=== PATIENT | female | born 1985 | race Caucasian/White ===

== ENCOUNTER → 2019-09-15 12:37 | Outpatient (CLI) | payer OTHER, SELFPAY ==
--- NOTE | ~2019-09-15 | US_ITS ---
EXAMINATION: US OB transvaginal DATE: 09/15/2019 13:22 INDICATION: Threatened , first trimester TECHNIQUE: Real-time pelvic transabdominal and transvaginal ultrasound was performed. COMPARISON: None. FINDINGS: The uterus measures 11.2 x 7.6 x 7.9 cm. A 3.3 x 2.7 x 3.6 cm area of heterogeneous echogen icity is seen in the uterine fundus. There is an intrauterine gestational sac. A yolk sac is identifi ed. heart motion is identified measuring 162 beats per minute (bpm) by M-mode Doppler. The feta l crown rump length measures 2.6 cm , which correlates with an estimated gestational age of 9 weeks a nd 3 day(s) (+/-) 6 day(s). The right ovary measures 2.9 x 1.9 x 3.0 cm. The left ovary measures 2.9 x 1.5 x 2.7 cm. There is no free fluid in the pelvis. IMPRESSION: 1. Live intrauterine with an estimated gestational age of 9 weeks and 3 day(s) (+/-) 6 day( s) and an estimated delivery date of 04/16/2020. 2. Area of heterogeneous echogenicity near the uterine fundus which could reflect uterine fibroid how ever hematoma is a consideration. Sonographic follow-up is recommended. Reviewed, dictated and finalized at location A. Y RUNNER IMPRESSION: 1. Live intrauterine with an estimated gestational age of 9 weeks and 3 day(s) (+/-) 6 day(s) and an estimated delivery date of 04/16/2020. 2. Area of heterogeneous echogenicity near the uterine fundus which could refle ct uterine fibroid however hematoma is a consideration. Sonographic follow-up i s recommended.
== END ==
PROVIDERS: Visit Provider Obstetrics & Gynecology
DX: O20.0 Threatened abortion (principal); Z3A.00 Weeks of gestation of pregnancy not specified
CPT/HCPCS: 76817

== ENCOUNTER → 2019-10-08 07:52 | Outpatient (CLI) | payer OTHER, SELFPAY ==
--- NOTE | ~2019-10-08 | US_ITS ---
EXAMINATION: US OB limited EXAM DATE: 10/08/2019 08:36 INDICATION: Shortness miscarriage, vaginal spotting, cramping. Follow-up. First trimester. TECHNIQUE: Pelvic obstetrical transabdominal sonogram was performed by a technologist. There are mu ltiple grayscale and Doppler images available for interpretation. Comparison is made to prior examina tion from 09/15/2019. FINDINGS: Uterus measures 12.7 x 8.5 x 10.7 centimeters. Again there is posterior myometrial region w hich is homogeneous, soft tissue echogenicity measuring 4.5 x 4.7 x 5.2 cm, most likely a fibroid. Th is has increased in size compared to prior study from up to 3.3 x 2.7 x 3.6 cm. There is intrauterine gestation sac. pole with heart rate confirmed at 150 beats per minute. There is no sonograph ic evidence of subchorionic hemorrhage. IMPRESSION: Focal round posterior myometrial region, appearance most consistent with a fibroid unchan ged given round shape and soft tissue echogenicity, but with mild interval increase in size which cou ld be hormonal related change. Live intrauterine gestation. Reviewed, dictated and finalized at location A. [employer] IMPRESSION: Focal round posterior myometrial region, appearance most consistent with a fibroid unchanged given round shape and soft tissue echogenicity, but w ith mild interval increase in size which could be hormonal related change. Live intrauterine gestation.
== END ==
PROVIDERS: Visit Provider Obstetrics & Gynecology
DX: O20.0 Threatened abortion (principal); Z3A.00 Weeks of gestation of pregnancy not specified
CPT/HCPCS: 76815

== ENCOUNTER 2019-12-01 08:09 | Outpatient (CLI) | payer OTHER, SELFPAY ==
--- NOTE | ~2019-12-01 | US_ITS ---
EXAMINATION: US OB /maternal detail DATE: 12/01/2019 09:07 INDICATION: Routine care. anatomic survey. TECHNIQUE: Real-time ultrasound of the pelvis was performed. COMPARISON: Ultrasound 10/08/2019, 09/15/2019 FINDINGS: There is a single living fetus in transverse lie. The placenta is anterior, 2.7 cm from the cervix. heart rate is 142 beats per minute (bpm). The amniotic fluid volume is subjectively normal. A m ass in the posterior uterus may be a contraction or a fibroid. The following biometric data were obtained: Biparietal diameter (BPD): 4.6 cm; head circumference (HC): 17.8 cm; abdominal circumference (AC): 16 .4 cm; femur length (FL): 3.4 cm. These measurements are concordant. Estimated weight is 395 g +/- 59 g, which correlates with 79th percentile when 04/16/20 is used as estimated date of delivery. As single measurements, these parameters are each equal to the following estimated gestational ages w ith ranges of +/- 2 standard deviations: BPD: 20 weeks 0 days (18 weeks 2 days - 21 weeks 5 days). HC: 20 weeks 2 days (18 weeks 6 days - 21 weeks 5 days). AC: 21 weeks 3 days (19 weeks 3 days - 23 weeks 4 days). FL: 20 weeks 6 days (19 weeks 0 days - 22 weeks 4 days). estimated gestational age based solely on measurements from this exam is 20 weeks 5 days +/- 1 weeks 3 days. The cerebral ventricles, cerebellum, cisterna magna, nuchal fold, and visualized portions of the spin e are normal. The heart is normal. The diaphragm, stomach, kidneys, and bladder are normal. There are two umbilical arteries to yield a 3-vessel cord. The cord insertion is normal. IMPRESSION: 1. Single living fetus in transverse lie. 2. Estimated weight is 395 g +/- 59 g, which correlates with 79th percentile when 04/16/20 is u sed as estimated date of delivery. This date was set by ultrasound on 09/15/19. 3. Normal anatomic survey. Reviewed, dictated and finalized at location A. IMPRESSION: 1. Single living fetus in transverse lie. 2. Estimated weight is 395 g +/- 59 g, which correlates with 79th percen tile when 04/16/20 is used as estimated date of delivery. [facility]. 3. Normal anatomic survey.
== END 2019-12-01 08:10 | disposition home or self-care (01) ==
LOC: ANHIMG 08:13
PROVIDERS: Visit Provider Obstetrics & Gynecology
DX: Z34.81 Encounter for supervision of other normal pregnancy, first trimester (principal)
CPT/HCPCS: 76805

== ENCOUNTER 2020-03-18 17:16 | Observation (INO) | payer OTHER, SELFPAY ==
--- NOTE | ~2020-03-18 | MR_ITS ---
EXAMINATION: MR abdomen wo con DATE: 03/19/2020 07:39 INDICATION: Right abdominal pain. Third trimester of . TECHNIQUE: Magnetic resonance imaging (MRI) of the abdomen was performed without intravenous contrast . Sequences included sagittal T2-weighted FS FSE, coronal, sagittal, and axial FS FIESTA, axial and c oronal T2-weighted FSE, coronal LAVA-flex, axial STIR FSE, axial DWI, axial dual-echo T1-weighted FSP GR, and axial LAVA. COMPARISON: Ultrasound 03/18/2020 FINDINGS: There is a single intrauterine gestation in vertex presentation. The placenta is on the right. There are cysts in the maternal liver measuring up to 8 mm. The gallbladder is normal. There is a 7 mm cyst in the spleen. The pancreas, adrenal glands, and kidneys are normal. The maternal appendix is normal . There are no dilated loops of bowel. There are no pathologically enlarged lymph nodes. There is no free intraperitoneal fluid. IMPRESSION: 1. Normal maternal appendix. Reviewed, dictated and finalized at location A.
--- NOTE | ~2020-03-18 | US_ITS ---
US soft tissue pelvic DATE: 03/18/2020 18:15 INDICATION: Right lower quadrant abdominal pain TECHNIQUE: Real-time imaging of the right lower quadrant COMPARISON: None FINDINGS: Appendicitis is neither confirmed or excluded based upon this examination. IMPRESSION: No definitive finding Reviewed, dictated and finalized at Location A. Reviewed, dictated and finalized at location A. IMPRESSION: No definitive finding
--- NOTE | 2020-03-18 17:16 | OBADM ---
This patient, Graciela Rao, admitted to the OB room OB Post 116 for observation. Patient/family oriented to hospital policies and general routines including ID bracelet, bed and alarms, visiting hours, pain management, procedures, bathroom and other care routines, personal items, smoking policy, room service/diet, and visiting hours. Patient/Family are encouraged to report perceived risks to care and to ask questions if they do not understand what they are told or what they should do.
[2020-03-18 17:33] VITALS: BP 147/88; PULSE 92; TEMP 36.7
[2020-03-18 17:45] VITALS: BP 152/91; PULSE 92; RESP 20; TEMP 37.2
--- NOTE | 2020-03-18 17:50 | PC.NURSE ---
Dr. Roque at bedside discussing plan of care with patient
[2020-03-18 18:08] LABS: Basophils Percent Auto 0.2 % (0.2-1.2); Eosinophils Percent Auto 0.3 % (0-4.4); Hematocrit 36.6 % (37.0-47.0); Hemoglobin 12.4 g/dL (12.0-15.0); Immature Granulocyte Absolute 0.05 K/mm3 (0.00-0.031); Immature Granulocyte Percent A 0.4 % (0-0.5); Lymphocytes Absolute Auto 1.41 K/mm3 (0.9-3.2); Lymphocytes Percent Auto 11.7 % (18.3-44.2); Mean Corpuscular HGB Conc 33.9 g/dl (32-36); Mean Corpuscular Hemoglobin 30.2 pg (26-34); Mean Corpuscular Volume 89.1 fl (80-100); Mean Platelet Volume 9.7 fl (7.4-10.4); Monocytes Absolute Auto 0.8 K/mm3 (0.1-0.6); Monocytes Percent Auto 6.6 % (2.6-8.5); Neutrophils Absolute Auto 9.8 K/mm3 (1.3-6.7); Neutrophils Percent Auto 80.8 % (45.5-73.1); Platelet Count Result 183 k/mm3 (150-375); Red Blood Count 4.11 M/mm3 (4.2-5.4); Red Cell Distribution Width 14.6 % (11.5-14.5); White Blood Count 12.1 K/mm3 (4.5-10.0)
[2020-03-18 18:09] VITALS: BMI 36.6
[2020-03-18 18:10] LABS: Add Urine Microscopic? NO; Appearance Urine Clear (Clear); Bilirubin Urine Negative (Negative); Blood Urine Negative (Negative); Color Urine Colorless (Yellow); Glucose Urine UA Negative (Negative); Ketones Urine Negative (Negative); Leukocyte Esterase Ur Negative LEU/UL (NEGATIVE); Nitrate Urine Negative (Negative); Protein Urine Negative (Negative); Specific Grav Ur 1.008 (1.001-1.035); Urobilinogen Urine Negative mg/dL (<2.0)
--- NOTE | 2020-03-18 18:17 | PC.NURSE ---
Addendum entered by Peyton Gerber RN 03/18/20 18:23: below note was entered for [id number] Original Note: called Dr. Roque reported pt arrival and right lower quad pain with rebound tenderness. order received for CBC and Ultrasound.
[2020-03-18 18:25] VITALS: BP 124/70; PULSE 88
[2020-03-18 18:26] VITALS: RESP 20; TEMP 37.6
[2020-03-18] MEDS: MORPHINE SULFATE 2 MG/ML INJ IV PUSH (18:41)
[2020-03-18] MEDS: SODIUM CHLORIDE 0.9% IV 1,000 ML 100 ML IV CONT (18:42)
[2020-03-18 19:06] LABS: Lactic Acid 1.2 mmol/L (0.7-2.1)
[2020-03-18 19:07] LABS: Anion Gap 6 mmol/L (8-16); Blood Urea Nitrogen 5 mg/dL (7-17); Calcium 8.7 mg/dL (8.4-10.2); Carbon Dioxide 21 mmol/L (22-30); Chloride 108 mmol/L (98-107); Estimated CRCL calculation 192 ml/min; Estimated Glomerular Filt Rate > 60; Glucose 99 mg/dL (65-105); Potassium 3.9 mmol/L (3.4-5.0); Sodium 135 mmol/L (137-145)
[2020-03-18 19:45] VITALS: BP 110/60; PULSE 92
[2020-03-19 02:06] VITALS: BP 114/70; PULSE 97
[2020-03-19 05:46] LABS: Basophils Percent Auto 0.1 % (0.2-1.2); Eosinophils Percent Auto 0.2 % (0-4.4); Hematocrit 33.9 % (37.0-47.0); Hemoglobin 11.4 g/dL (12.0-15.0); Immature Granulocyte Absolute 0.06 K/mm3 (0.00-0.031); Immature Granulocyte Percent A 0.5 % (0-0.5); Lymphocytes Percent Auto 11.9 % (18.3-44.2); Mean Corpuscular HGB Conc 33.6 g/dl (32-36); Mean Corpuscular Hemoglobin 29.9 pg (26-34); Mean Platelet Volume 9.7 fl (7.4-10.4); Monocytes Absolute Auto 0.7 K/mm3 (0.1-0.6); Neutrophils Absolute Auto 8.9 K/mm3 (1.3-6.7); Neutrophils Percent Auto 81.3 % (45.5-73.1); Platelet Count Result 163 k/mm3 (150-375); Red Blood Count 3.81 M/mm3 (4.2-5.4); Red Cell Distribution Width 14.6 % (11.5-14.5)
[2020-03-19 05:55] LABS: Anion Gap 5 mmol/L (8-16); Blood Urea Nitrogen 3 mg/dL (7-17); Calcium 8.1 mg/dL (8.4-10.2); Carbon Dioxide 20 mmol/L (22-30); Chloride 107 mmol/L (98-107); Estimated CRCL calculation 192 ml/min; Estimated Glomerular Filt Rate > 60; Glucose 105 mg/dL (65-105); Potassium 3.9 mmol/L (3.4-5.0); Sodium 132 mmol/L (137-145)
[2020-03-19] MEDS: SODIUM CHLORIDE 0.9% IV 1,000 ML 100 ML IV CONT (06:29)
[2020-03-19 06:30] VITALS: TEMP 36.4
--- NOTE | 2020-03-19 06:40 | PC.NURSE ---
off floor for MRI
--- NOTE | 2020-03-19 07:07 | PC.NURSE ---
Dr. Hill at unit. report given. pt is at MRI. He will make round later.
--- NOTE | 2020-03-19 07:43 | PC.NURSE ---
Pt back from MRI.
[2020-03-19 07:45] VITALS: BP 126/78; PULSE 100
[2020-03-19 07:49] VITALS: RESP 20
[2020-03-19] MEDS: ACETAMINOPHEN 500 MG TABLET 1000 MG PO (08:36)
--- NOTE | 2020-03-19 08:49 | PM.CNGS ---
Assessment and Plan Assessment and plan (1) Abdominal pain: Onset Date: ~03/18/20 Code(s): R10.9 - Unspecified abdominal pain Status: Acute Assessment and Plan: Unknown etiolgy. Abdominal MR shows no inflammation of the appendix or surrounding it. (2) 36 weeks gestation of : Onset Date: ~08/2019 Code(s): Z3A.36 - 36 weeks gestation of Status: Acute Assessment and Plan: Seems to be normal by ultrasound and abdominal MR. As per primary service. Additional Plan Current situation discussed with Dr. Roque. She will take Tylenol for her abdominal pain and try starting a diet. I suggested for the next 2 days that she continue on a soft diet at the most. She may be able take Tylenol for this discomfort. I will sign off at this point. Please call if you have any questions or I can be of further assistance. History of Present Illness Consult details Consult date: 03/29/20 Reason for consult: abdominal pain (Right lower and mid abdomen) Requesting physician: Nigel Roque MD Narrative: patient is a pleasant 34-year-old white female who is 36 weeks . She states that she was feeling her normal self until about lunch time yesterday. Yesterday morning on Friday she woke up feeling well having gone golfing with her the day before. She did take 2 big swings while golfing but did not have any abdominal pain or muscle soreness that evening or the following morning when she woke up. She ate a normal breakfast on Friday she ate a fairly normal lunch. She then took a nap and when she woke up she had the right-sided abdominal pain. She put up with that until about 4:00 p.m. and then call Dr. muñoz for. He asked them to come to [facility] here [facility] and have a stress test and be monitored. He called me yesterday and we did an ultrasound which was equivocal for any sign of appendicitis. She did have nausea but her white count was normal last evening. I started her on antibiotics in case was appendicitis last night and ordered the more definitive test of a MR Without IV contrast for this morning. I have just reviewed the MR with Dr. Singleton in radiology. This showed that she does not have appendicitis. The uterine and 0 0 placenta looked normal. The colon is compressed along the right side of the uterus against the right abdominal wall but otherwise there is no signs of why she is having the pain. She does not have any hernias she does not have gallstones. This was all report to the patient and her who was with her. She is hungry today and would like to try something to eat. She is not nauseated right now. Review of Systems Constitutional: Constitutional: Reports no additional constitutional complaints, Reports fatigue and Denies malaise Eyes: Eyes: Denies change in vision and Denies loss of vision ENT: Reports Normal hearing present, Denies change in voice, Denies dizziness, Denies hoarseness and Denies sore throat Cardiovascular: Cardiovascular: Denies chest pain, Denies leg edema and Denies dyspnea Respiratory: Respiratory: Denies cough, Denies dyspnea and Denies wheezing Gastrointestinal: Gastrointestinal: Denies hematochezia, Denies change in bowel habits and Denies heartburn Genitourinary: Genitourinary: Reports no additional female genitourinary complaints, Reports as per HPI, Denies urinary frequency, Denies urinary incontinence and Denies urinary urgency Comments: Largely distended lower abdomen due to gravid uterus Thirty-six week . Musculoskeletal: Comments: Possibly musculoskeletal pain along the right abdominal wall to palpation but no other changes. There is no similar pain to palpation on the left. Neurologic: Reports Normal hearing present, Denies confusion, Denies dizziness, Denies loss of vision, Denies memory loss and Denies seizure-like activity Psychiatric: Psychiatric: Denies c
--- NOTE | 2020-03-19 09:52 | PM.IMHP ---
H&P: HPI History of Present Illness Date/Time: 03/19/20 09:52 Chief complaint: Right Side Pain Narrative: Graciela Rao is a 34 year old female 3 para 2021 female 36 weeks gestation presents acute onset right lower quadrant pain approximately 3-4 hours to admission. The day prior had had increased activity but no problems until she woke up with severe lower right lower quadrant right lateral quadrant pain. Also nauseous with no vomiting no constipation or diarrhea and no urinary tract symptoms. No vaginal bleeding and baby's movement has been normal. Review of Systems Review of Systems: All systems reviewed & are unremarkable except as noted in HPI and below Meds Home Medications and Allergies Home Medications Medication Instructions Recorded Confirmed Type no.144-folic acid 400 mcg PO DAILY 03/18/20 03/18/20 History [] Allergies Allergy/AdvReac Type Severity Reaction Status Date / Time No Known Allergies Allergy Unverified 11/28/17 14:35 Vital Signs Vital Signs - 24 hr 03/18/20 17:33 03/18/20 17:45 03/18/20 18:25 Temperature 36.7 C 37.2 C Pulse Rate 92 92 88 Respiratory Rate 20 Blood Pressure 147/88 H 152/91 H 124/70 03/18/20 18:26 03/18/20 19:45 03/19/20 02:06 Temperature 37.6 C H Pulse Rate 92 97 Respiratory Rate 20 Blood Pressure 110/60 114/70 03/19/20 06:30 03/19/20 07:45 03/19/20 07:49 Temperature 36.4 C L Pulse Rate 100 Respiratory Rate 20 Blood Pressure 126/78 Exam Const: General: uncomfortable Resp: Auscultation: clear to auscultation bilaterally Cardio: Rate: regular rate Rhythm: regular rhythm GI: GI Palp: Yes Soft to palpation, Yes Tenderness to palpation present (GI) and Yes Guarding due to palpation present (GI) Other: Fundus nontender H&P: Results Labs Labs: Short CBC 03/18/20 03/18/20 03/19/20 Range/Units 18:00 18:37 05:23 WBC 12.1 H Cancelled 11.0 H (4.5-10.0) K/mm3 Hgb 12.4 Cancelled 11.4 L (12.0-15.0) g/dL Hct 36.6 L Cancelled 33.9 L (37.0-47.0) % Plt Count 183 Cancelled 163 (150-375) k/mm3 BMP 03/18/20 03/19/20 18:37 05:23 Sodium 135 L 132 L Potassium 3.9 3.9 Chloride 108 H 107 Carbon Dioxide 21 L 20 L BUN 5 L 3 L Creatinine 0.40 L 0.40 L Glucose 99 105 Calcium 8.7 8.1 L Urine 03/18/20 Range/Units 18:00 Urine Color Colorless (Yellow) Urine Appearance Clear (Clear) Urine pH 8.0 (5.0-9.0) Ur Specific [place] 1.008 (1.001-1.035) Urine Protein Negative (Negative) mg/dL Urine Glucose (UA) Negative (Negative) mg/dL Assessment and Plan Additional Plan 1. Admit with blood work and ultrasound to evaluate for appendicitis. 2. Consult General surgery to assess for appendicitis. 3. Further plan based on findings of above.
--- NOTE | 2020-03-19 09:57 | PM.OBDSVD ---
DS: Admitting Diagnosis Admitting Diagnosis Admitting Diagnosis: Right Side Pain OB - DS: Summary OB Procedures : None OB Procedures Intrapartum: Other OB Procedures: : Other Time Spent with Patient Time attestation: Total time spent providing and/or coordinating discharge services: DS: Data Data Completed and Pending Labs on day of discharge: Labs from last 24 hours 03/19/20 03/19/20 03/18/20 05:23 05:23 18:37 WBC 11.0 H Cancelled RBC 3.81 L Cancelled Hgb 11.4 L Cancelled Hct 33.9 L Cancelled MCV 89.0 Cancelled MCH 29.9 Cancelled MCHC 33.6 Cancelled RDW 14.6 H Cancelled Plt Count 163 Cancelled MPV 9.7 Cancelled Immature Gran % (Auto) 0.5 Cancelled Neut % (Auto) 81.3 H Cancelled Lymph % (Auto) 11.9 L Cancelled [place] % (Auto) 6.0 Cancelled Eos % (Auto) 0.2 Cancelled Baso % (Auto) 0.1 L Cancelled Lymph # (Auto) 1.30 Cancelled [place] # (Auto) 0.7 H Cancelled Eos # (Auto) 0.0 Cancelled Baso # (Auto) 0.0 Cancelled Abs Immat Gran (auto) 0.06 H Cancelled Absolute Neuts (auto) 8.9 H Cancelled Absolute Nucleated RBC 0.0 Cancelled Nucleated RBC % 0.0 Cancelled % Immature Plt Fraction Cancelled Sodium 132 L Potassium 3.9 Chloride 107 Carbon Dioxide 20 L Anion Gap 5 L BUN 3 L Creatinine 0.40 L Estim Creat Clear Calc 192 Estimated GFR > 60 Glucose 105 Lactic Acid Calcium 8.1 L Urine Color Urine Appearance Urine pH Ur Specific [place] Urine Protein Urine Glucose (UA) Urine Ketones Ur Blood (Man) Urine Nitrate Urine Bilirubin Urine Urobilinogen Ur Leukocyte Esterase 03/18/20 03/18/20 03/18/20 18:37 18:37 18:00 WBC 12.1 H RBC 4.11 L Hgb 12.4 Hct 36.6 L MCV 89.1 MCH 30.2 MCHC 33.9 RDW 14.6 H Plt Count 183 MPV 9.7 Immature Gran % (Auto) 0.4 Neut % (Auto) 80.8 H Lymph % (Auto) 11.7 L [place] % (Auto) 6.6 Eos % (Auto) 0.3 Baso % (Auto) 0.2 Lymph # (Auto) 1.41 [place] # (Auto) 0.8 H Eos # (Auto) 0.0 Baso # (Auto) 0.0 Abs Immat Gran (auto) 0.05 H Absolute Neuts (auto) 9.8 H Absolute Nucleated RBC 0.0 Nucleated RBC % 0.0 % Immature Plt Fraction Sodium 135 L Potassium 3.9 Chloride 108 H Carbon Dioxide 21 L Anion Gap 6 L BUN 5 L Creatinine 0.40 L Estim Creat Clear Calc 192 Estimated GFR > 60 Glucose 99 Lactic Acid 1.2 Calcium 8.7 Urine Color Urine Appearance Urine pH Ur Specific [place] Urine Protein Urine Glucose (UA) Urine Ketones Ur Blood (Man) Urine Nitrate Urine Bilirubin Urine Urobilinogen Ur Leukocyte Esterase 03/18/20 18:00 WBC RBC Hgb Hct MCV MCH MCHC RDW Plt Count MPV Immature Gran % (Auto) Neut % (Auto) Lymph % (Auto) [place] % (Auto) Eos % (Auto) Baso % (Auto) Lymph # (Auto) [place] # (Auto) Eos # (Auto) Baso # (Auto) Abs Immat Gran (auto) Absolute Neuts (auto) Absolute Nucleated RBC Nucleated RBC % % Immature Plt Fraction Sodium Potassium Chloride Carbon Dioxide Anion Gap BUN Creatinine Estim Creat Clear Calc Estimated GFR Glucose Lactic Acid Calcium Urine Color Colorless Urine Appearance Clear Urine pH 8.0 Ur Specific [place] 1.008 Urine Protein Negative Urine Glucose (UA) Negative Urine Ketones Negative Ur Blood (Man) Negative Urine Nitrate Negative Urine Bilirubin Negative Urine Urobilinogen Negative Ur Leukocyte Esterase Negative Discharge Plan Discharge Consulting providers: Ramon Hill Discharging Clinician: Nigel Roque Patient Disposition: Home, Self-Care Activity: as tolerated Diet: as tolerated Discharge Instructions: 1. Keep appointment early this week as scheduled 2. If any significant symptomatic changes she is to return to the labor and delivery unit
[2020-03-19 10:01] VITALS: BP 119/74; PULSE 87
[2020-03-19 10:40] VITALS: BP 119/74; PULSE 87
== END 2020-03-19 11:10 | disposition home or self-care (01) ==
PROVIDERS: Surgery; Admitting Provider Obstetrics & Gynecology; Visit Provider Obstetrics & Gynecology
DX: O26.893 Other specified pregnancy related conditions, third trimester (principal); R10.9 Unspecified abdominal pain; Z3A.36 36 weeks gestation of pregnancy
CPT/HCPCS: 36415; 59025; 74181; 76857; 80048; 81003; 83605; 85025; 87086; 96361; 96365; 96366; 96368; 96375; A9270; G0378; G0379; J0131; J2270; J2543; J7030

== ENCOUNTER 2020-04-11 17:53 | Inpatient (IN) | payer OTHER, SELFPAY ==
[2020-04-11] VITALS (18 sets, daily range): BP systolic 115–143; BP diastolic 75–93; PULSE 73–94; BMI 38.3
--- NOTE | 2020-04-11 18:30 | LDADM ---
This patient, Graciela Rao, was admitted to Labor/Delivery/Recovery 108 on 04/11/20 at 17:53. Plans for labor, pain management and were discussed with patient. Patient/family oriented to hospital policies and general routines including ID bracelet, bed and alarms, visiting hours, pain management, procedures, bathroom and other care routines, personal items, smoking policy, room service/diet and guest tray routines, infant security routines, and visiting hours. Patient/Family are encouraged to report perceived risks to care and to ask questions if they do not understand what they are told or what they should do. See OBIX for further documentation.
[2020-04-11 19:02] LABS: Basophils Percent Auto 0.2 % (0.2-1.2); Eosinophils Absolute Auto 0.1 K/mm3 (0-0.3); Eosinophils Percent Auto 0.7 % (0-4.4); Hematocrit 35.2 % (37.0-47.0); Immature Granulocyte Absolute 0.03 K/mm3 (0.00-0.031); Immature Granulocyte Percent A 0.4 % (0-0.5); Lymphocytes Absolute Auto 2.09 K/mm3 (0.9-3.2); Lymphocytes Percent Auto 25.7 % (18.3-44.2); Mean Corpuscular HGB Conc 34.1 g/dl (32-36); Mean Corpuscular Hemoglobin 30.1 pg (26-34); Mean Corpuscular Volume 88.2 fl (80-100); Mean Platelet Volume 9.6 fl (7.4-10.4); Monocytes Absolute Auto 0.6 K/mm3 (0.1-0.6); Monocytes Percent Auto 7.1 % (2.6-8.5); Neutrophils Absolute Auto 5.4 K/mm3 (1.3-6.7); Neutrophils Percent Auto 65.9 % (45.5-73.1); Platelet Count Result 183 k/mm3 (150-375); Red Blood Count 3.99 M/mm3 (4.2-5.4); Red Cell Distribution Width 14.6 % (11.5-14.5); White Blood Count 8.1 K/mm3 (4.5-10.0)
[2020-04-11] MEDS: DINOPROSTONE 10 MG VAG INSERT VAGINAL (19:08)
[2020-04-12] VITALS (97 sets, daily range): BP systolic 85–163; BP diastolic 45–110; PULSE 66–168; RESP 16–18; TEMP 36.3–37.2; O2SAT 97–100
[2020-04-12] MEDS: OXYTOCIN 30 UNITS/NS 500 ML 30 UNITS/500 ML BAG IV CONT (06:17)
[2020-04-12] MEDS: LACTATED RINGERS 1,000 ML 125 ML IV CONT ×2 (06:17→07:48)
--- NOTE | 2020-04-12 06:17 | WPDANESEPPF ---
Anes - Initial Pre Proc Eval Procedure: Operation Date: 04/12/20 07:30 Proposed Procedures p Repeat Section, Bilateral Tubal Ligation With Cautery - Nigel Roque MD Date/Time: 04/12/20 06:17 Surgeon: Nigel Roque MD Pre Op Diagnosis: Induction of Labor Patient Data Age: 34 Gender: F Height: 1.65 m Weight: 104.5 kg Last Vital Signs Temp 36.3 C L 04/12/20 05:23 Pulse 89 04/12/20 06:16 BP 110/93 H 04/12/20 06:16 Allergies Allergy/AdvReac Type Severity Reaction Status Date / Time No Known Allergies Allergy Unverified 11/28/17 14:35 Home Medications Medication Instructions Recorded Confirmed Type 400 mcg PO DAILY 03/18/20 03/18/20 History acetaminophen 1,000 mg PO Q6H PRN #20 tablet 03/19/20 Rx Laboratory Tests 04/11/20 04/11/20 04/11/20 18:53 18:53 18:53 WBC 8.1 K/mm3 K/mm3 (4.5-10.0) RBC 3.99 M/mm3 L M/mm3 (4.2-5.4) Hgb 12.0 g/dL g/dL (12.0-15.0) Hct 35.2 % L % (37.0-47.0) MCV 88.2 fl fl (80-100) MCH 30.1 pg pg (26-34) MCHC 34.1 g/dl g/dl (32-36) RDW 14.6 % H % (11.5-14.5) Plt Count 183 k/mm3 k/mm3 (150-375) MPV 9.6 fl fl (7.4-10.4) Immature Gran % (Auto) 0.4 % % (0-0.5) Neut % (Auto) 65.9 % % (45.5-73.1) Lymph % (Auto) 25.7 % % (18.3-44.2) [place] % (Auto) 7.1 % % (2.6-8.5) Eos % (Auto) 0.7 % % (0-4.4) Baso % (Auto) 0.2 % % (0.2-1.2) Lymph # (Auto) 2.09 K/mm3 K/mm3 (0.9-3.2) [place] # (Auto) 0.6 K/mm3 K/mm3 (0.1-0.6) Eos # (Auto) 0.1 K/mm3 K/mm3 (0-0.3) Baso # (Auto) 0.0 K/mm3 K/mm3 (0.0-0.1) Abs Immat Gran (auto) 0.03 K/mm3 K/mm3 (0.00-0.031) Absolute Neuts (auto) 5.4 K/mm3 K/mm3 (1.3-6.7) Absolute Nucleated RBC 0.0 K/mm3 K/mm3 (0.0-0.012) Nucleated RBC % 0.0 % % (0.0-0.2) RPR Pending Blood Type O Positive Antibody Screen Negative Patient hx anesthesia problems: none Family hx anesthesia problems: none PMFSH Social History Social History Smoking status: Never smoker Second hand tobacco smoke exposure: No Substance use: never Gender identity (if verbalized by the patient): Female Sexual Orientation (if Verbalized by the Patient): Straight or Heterosexual Spiritual care concerns: No Anes - Eval Final PreProcedure Day of Procedure 04/12/20 06:17 Patient weight: obese Heart: regular rate and rhythm Lungs: clear to auscultation and normal air movement Airway: Mallampati scale class II Neurological: alert and oriented Last oral intake: >/= 8 hours ASA classification: III Anesthetic plan: proceed Anesthesia type and monitoring: regional spinal and standard monitoring Informed Consent: The patient's anesthetic plan and its attendant risks and benefits were discussed with the patient/family/POA. Questions were solicited and answers provided to the satisfaction of the patient/family/POA.
[2020-04-12 10:03] LABS: Rapid Plasma Reagin Non-Reactive (NonReactive)
--- NOTE | 2020-04-12 10:47 | WPDHPUPDATE1 ---
History and Physical Update Update Date/Time: 04/12/20 10:47 History and Physical has been reviewed, including an updated exam of the patient. There are NO changes in the patient's condition. Risks, benefits, and alternatives have been discussed and questions answered. Patient agrees to proceed with procedure.
--- NOTE | 2020-04-12 10:47 | WPDOBADMIT ---
Obstetrics - Admit Note Admission Note: record reviewed. No pertinent additions to the history and/or any subsequent changes in the physical findings that are not consistent with the expected course of the were found. Additions to the history and/or subsequent changes in the physical findings follow. None.
--- NOTE | 2020-04-12 10:48 | PM.OBPRVD ---
OB - Delivery Note Procedure Procedure: Procedures Operation Date: 04/12/20 07:30 <No data on this case meets the specified criteria> Route of delivery: Laceration description: Perineal - 2nd Degree Estimated blood loss (mL): 300 Anesthesia type: Epidural Disposition: floor Narrative: Patient prepped and draped in the usual manner for this procedure. Maternal expulsive efforts readily delivered vertex over intact perineum and the rest of baby was delivered without difficulty. Cord was clamped and cut and placenta delivered spontaneously. Cervix vagina and vulva were inspected second-degree midline laceration was noted. This is approximated using 2 0 chromic to approximate the vaginal tissue in a running interlocking manner the deep tissue close the space in the subcuticular layer on the perineum. At this point seizure was considered terminated with immediate postop condition mother and baby both excellent. Baby Weeks of gestation at delivery: 39 gender: Female Weight (pounds): 7 Weight (ounces): 13 score one minute: 9 score five minutes: 9
[2020-04-12] MEDS: OXYTOCIN 30 UNITS/NS 500 ML 30 UNITS/500 ML BAG 125 UNITS IV CONT (11:05)
[2020-04-12] MEDS: BENZOCAINE 20% AER SPR (*SP) 56 GM CAN 1 SPRAY TOPICAL (12:59)
[2020-04-12] MEDS: WITCH HAZEL 40 PADS 1 PAD TOPICAL (12:59)
[2020-04-12] MEDS: IBUPROFEN 600 MG TABLET PO (14:38)
[2020-04-12] MEDS: DIBUCAINE 1% OINTMENT 30 GM TUBE 1 APPLIC TOPICAL (14:39)
[2020-04-12] MEDS: ACETAMINOPHEN 325 MG TABLET 650 MG PO (21:07)
[2020-04-12] MEDS: DOCUSATE SODIUM 100 MG CAPSULE PO (21:07)
[2020-04-13 05:41] LABS: Hematocrit 35.1 % (37.0-47.0); Hemoglobin 11.7 g/dL (12.0-15.0)
--- NOTE | 2020-04-13 06:45 | PC.NURSE ---
PT introductions made and plan of care discussed per post , pain management, breast feeding, daily care activities. Pt verbalized understanding of such care.
[2020-04-13] MEDS: DOCUSATE SODIUM 100 MG CAPSULE PO (06:49)
[2020-04-13] MEDS: MULTIVIT/MIN/PREN/FOL AC/IRON TABLET 1 TAB PO (06:49)
[2020-04-13] MEDS: POLYSACCHARIDE IRON COMPLEX 150 MG CAPSULE PO (06:49)
[2020-04-13] MEDS: IBUPROFEN 600 MG TABLET PO ×2 (06:50→14:00)
[2020-04-13] MEDS: ACETAMINOPHEN 325 MG TABLET 650 MG PO ×2 (06:52→14:00)
[2020-04-13 07:40] VITALS: BP 125/76; PULSE 80; RESP 18; TEMP 36.2
[2020-04-13 07:45] VITALS: PULSE 80
--- NOTE | 2020-04-13 08:41 | PM.OBDSVD ---
DS: Admitting Diagnosis Admitting Diagnosis Admitting Diagnosis: Induction of Labor OB - DS: Summary OB Procedures : None OB Procedures Intrapartum: Spontaneous Vag Delivery OB Procedures: : None Peripartum Data Procedures: Procedures Operation Date: 04/12/20 07:30 <No data on this case meets the specified criteria> Time Spent with Patient Time attestation: Total time spent providing and/or coordinating discharge services: DS: Data Data Completed and Pending Labs on day of discharge: Labs from last 24 hours 04/13/20 04/11/20 05:02 18:53 Hgb 11.7 L Hct 35.1 L RPR Non-reactive Discharge Plan Discharge Discharging Clinician: Nigel Roque Patient Disposition: Home, Self-Care Activity: as tolerated Diet: as tolerated Patient Instructions: Antibiotic Form Stand Alone Forms: General Discharge Information Follow-up/Referrals: Nigel Roque MD [Physician] - 3 Weeks Discharge Medications: New ibuprofen 600 mg Tablet 600 mg PO Q6H PRN (Reason: Cramping) Qty: 30 RF: 0 Continued 400 mcg Tablet,Chewable 400 mcg PO DAILY RF: 0 Date of admission: 04/11/20 17:53 Primary Care Provider: PHYSICIAN,ARTIFICIAL LOG MACHINE OPERATOR Admitting Provider: Nigel Roque Attending physician on admission: Nigel Roque
--- NOTE | 2020-04-13 09:31 | WPDANLDPN2 ---
Anes-Prog Note L&D Date/Time: 04/13/20 09:31 Comfortable throughout: labor and delivery Neuraxial method: epidural Epidural/Spinal procedure site: clean & non-tender Neuro status: Neuro function grossly intact. Cardiovascular status: normal Respiratory status: normal Airway patency: baseline Mental status: baseline Post-Op hydration status: normal Vital Signs: Last Vital Signs Temp 36.5 C 04/12/20 21:00 Pulse 80 04/12/20 21:00 Resp 18 04/12/20 21:00 BP 128/90 04/12/20 21:00 Pulse Ox 99 04/12/20 21:00 Pain score (VAS): 0/10 I/O: Intake & Output 04/12/20 04/13/20 04/13/20 23:59 07:59 15:59 Intake Total 500 Balance 500 Post-procedural complaints: none Patient feedback: Patient satisfied with anesthetic care.
--- NOTE | 2020-04-13 13:10 | PC.NURSE ---
Consulted with patient, mother reports she is putting to breast each feeding using the nipple shield, she will then supplement and pump for 10-15 minutes. Parents report first child had issues with latch and mostly pumped and bottle fed. Mother is pleased infant is latching using a shield at times. Discussed nipple shield precautions and possible complications. Instructions given on application and cleaning of shield. Patient able to return demonstration on proper application of shield. Discussed the need to initiate pumping if infant continues to nurse with the shield. Patient verbalizes understanding. Reviewed feeding cues, frequencies, duration of feedings, feeding elimination flow sheet, and signs of adequate intake. Demonstrated stimulation techniques to wake infant for feeding. Assisted with infant to breast with shield. Reviewed positioning/alignment in cross cradle, holding breast in U hold and guided asymmetrical latch on. was able to latch correctly. nursed sleepily with short chew suckling, occasional swallowing noted. Reviewed signs of a correct latch, effective nursing and suck swallow ratio. Mother reports her plan is to continue to attempt each feeding with shield, allowing to feed/attempt for 10-15 minutes, then bottle feed as much as desires then pump. Mother will pump and bottle feed if infant does not effectively breastfeed within a few days. Mother is comfortable with pumping and bottle feeding as she did with first child. Mother is feeding as required and waking infant to feed if needed. Infant bottle feeding without issue and is currently meeting outcomes for weight, output, jaundice and feeding frequencies. Mother states she feels confident to continue current feeding plan at home. Reviewed transition to breast milk, signs of adequate intake, and engorgement/relief. Instructed to call ICP if intake/output less than required. Reviewed regular medications mother is taking. Information provided per Danielle. Reviewed community resources on the [facility] website and in the Mom/Baby guide. Information on outpatient services provided. Mother has no further questions at this time.
--- NOTE | 2020-04-13 14:15 | PC.NURSE ---
PT received discharge instructions per protocol and verbalized understanding of such instructions.
--- NOTE | 2020-04-13 14:57 | PC.NURSE ---
PT discharged to home ambulatory accompanied by spouse and to waiting car. Follow up appts confirmed
[2020-04-14 08:50] VITALS: BP 120/84; PULSE 92; RESP 16; TEMP 37.1; O2SAT 99
--- NOTE | 2020-04-15 08:05 | P.DS_ITS ---
DS: Admitting Diagnosis Admitting Diagnosis Admitting Diagnosis: Induction of Labor OB - DS: Summary OB Procedures : None OB Procedures Intrapartum: Spontaneous Vag Delivery OB Procedures: : None Peripartum Data Procedures: Procedures Operation Date: 04/12/20 07:30 <No data on this case meets the specified criteria> Time Spent with Patient Time attestation: Total time spent providing and/or coordinating discharge services: Discharge Plan Discharge Discharging Clinician: Nigel Roque Patient Disposition: Home, Self-Care Activity: as tolerated Diet: as tolerated Discharge Instructions: Education: Mom and Baby Guide Given to: Mother Follow-Up: Call your delivering provider's office for an appointment to be seen in: 3 weeks Mom and baby should come to the [facility] for the follow-up appointment. Appointment Date/Time: April 14, 2020 at 9:00 am What to expect at your follow-up visit: Blood Pressure Check Call [phone] if you are unable to keep your appointment time. BREAST CARE: * Wear a snug supportive bra. * For engorgement discomfort: Breast Feeding: * Apply warm moist washcloths * Express milk as needed to relieve engorgement * Wear loose clothing Bottle Feeding: * May apply ice packs * For sore nipples: * Identify correct latch-on * Apply warm moist washcloths before and after nursing * Air dry nipples after nursing * May apply Lansinoh cream to nipples PERINEAL CARE: * Until bleeding stops, use your lauren bottle after urinating * Change your pad frequently throughout the day * You may take sitz baths several times a day (fill your bathtub with warm water and soak for 20 minutes.) Do NOT bathe in the water * No tub baths until seen by your physician - You may shower ACTIVITY: * Rest as much as possible. * Do not exercise or lift anything heavier than your baby (such as laundry or other children.) * Avoid stairs or driving as much as possible. * Do not put anything into the vagina. No douching, tampons, or sexual activity until seen by physician. NOTIFY PHYSICIAN IF YOU HAVE ANY QUESTIONS OR IF ANY OF THE FOLLOWING SYMPTOMS OCCUR: * If your perineum becomes red, swollen, or more painful than what you have experienced in the hospital. * If your vaginal bleeding becomes foul smelling. * If your vaginal bleeding becomes more heavy than a period or if your bleeding changes from pink to bright red. However, you may pass an occasional walnut- sized clot once or twice for the first week . * If you experience a sharp, shooting pain in you calves. * If you discover a hard, reddened area on your breast or if you experience flu- like symptoms. * If you have a fever of 100.4 or greater DIET: * Eat regular, well-balanced meals. * Drink plenty of fluids daily. If , drink to thirst. Patient Instructions: Antibiotic Form Stand Alone Forms: General Discharge Information Follow-up/Referrals: Nigel Roque MD [Physician] - 3 Weeks Discharge Medications: New ibuprofen 600 mg Tablet 600 mg PO Q6H PRN (Reason: Cramping) Qty: 30 RF: 0 Continued 400 mcg Tablet,Chewable 400 mcg PO DAILY RF: 0 Date of admission: 04/11/20 17:53 Primary
--- NOTE | 2020-04-19 12:43 | PM.OBDSVD ---
DS: Admitting Diagnosis Admitting Diagnosis Admitting Diagnosis: Induction of Labor OB - DS: Summary OB Procedures : None OB Procedures Intrapartum: Spontaneous Vag Delivery OB Procedures: : None Peripartum Data Procedures: Procedures Operation Date: 04/12/20 07:30 <No data on this case meets the specified criteria> Time Spent with Patient Time attestation: Total time spent providing and/or coordinating discharge services: Discharge Plan Discharge Discharging Clinician: Nigel Roque Patient Disposition: Home, Self-Care Activity: as tolerated Diet: as tolerated Discharge Instructions: Education: Mom and Baby Guide Given to: Mother Follow-Up: Call your delivering provider's office for an appointment to be seen in: 3 weeks Mom and baby should come to the [facility] for the follow-up appointment. Appointment Date/Time: April 14, 2020 at 9:00 am What to expect at your follow-up visit: Blood Pressure Check Call [phone] if you are unable to keep your appointment time. BREAST CARE: * Wear a snug supportive bra. * For engorgement discomfort: Breast Feeding: * Apply warm moist washcloths * Express milk as needed to relieve engorgement * Wear loose clothing Bottle Feeding: * May apply ice packs * For sore nipples: * Identify correct latch-on * Apply warm moist washcloths before and after nursing * Air dry nipples after nursing * May apply Lansinoh cream to nipples PERINEAL CARE: * Until bleeding stops, use your lauren bottle after urinating * Change your pad frequently throughout the day * You may take sitz baths several times a day (fill your bathtub with warm water and soak for 20 minutes.) Do NOT bathe in the water * No tub baths until seen by your physician - You may shower ACTIVITY: * Rest as much as possible. * Do not exercise or lift anything heavier than your baby (such as laundry or other children.) * Avoid stairs or driving as much as possible. * Do not put anything into the vagina. No douching, tampons, or sexual activity until seen by physician. NOTIFY PHYSICIAN IF YOU HAVE ANY QUESTIONS OR IF ANY OF THE FOLLOWING SYMPTOMS OCCUR: * If your perineum becomes red, swollen, or more painful than what you have experienced in the hospital. * If your vaginal bleeding becomes foul smelling. * If your vaginal bleeding becomes more heavy than a period or if your bleeding changes from pink to bright red. However, you may pass an occasional walnut-sized clot once or twice for the first week . * If you experience a sharp, shooting pain in you calves. * If you discover a hard, reddened area on your breast or if you experience flu-like symptoms. * If you have a fever of 100.4 or greater DIET: * Eat regular, well-balanced meals. * Drink plenty of fluids daily. If , drink to thirst. Patient Instructions: Antibiotic Form Stand Alone Forms: General Discharge Information Follow-up/Referrals: Nigel Roque MD [Physician] - 3 Weeks Discharge Medications: New ibuprofen 600 mg Tablet 600 mg PO Q6H PRN (Reason: Cramping) Qty: 30 RF: 0 Continued 400 mcg Tablet,Chewable 400 mcg PO DAILY RF: 0 Date of admission: 04/11/20 17:53 Primary Care Provider: PHYSICIAN,HISTORIC SITE ADMINISTRATOR Admitting Provider: Nigel Roque Discharge Date/Time: 04/13/20 14:57 Attending physician on admission: Nigel Roque
--- NOTE | 2020-04-21 13:28 | PM.OBDSVD ---
DS: Admitting Diagnosis Admitting Diagnosis Admitting Diagnosis: Induction of Labor OB - DS: Summary OB Procedures : None OB Procedures Intrapartum: Spontaneous Vag Delivery OB Procedures: : None Peripartum Data Procedures: Procedures Operation Date: 04/12/20 07:30 <No data on this case meets the specified criteria> Time Spent with Patient Time attestation: Total time spent providing and/or coordinating discharge services: Discharge Plan Discharge Discharging Clinician: Nigel Roque Patient Disposition: Home, Self-Care Activity: as tolerated Diet: as tolerated Discharge Instructions: Education: Mom and Baby Guide Given to: Mother Follow-Up: Call your delivering provider's office for an appointment to be seen in: 3 weeks Mom and baby should come to the [facility] for the follow-up appointment. Appointment Date/Time: April 14, 2020 at 9:00 am What to expect at your follow-up visit: Blood Pressure Check Call [phone] if you are unable to keep your appointment time. BREAST CARE: * Wear a snug supportive bra. * For engorgement discomfort: Breast Feeding: * Apply warm moist washcloths * Express milk as needed to relieve engorgement * Wear loose clothing Bottle Feeding: * May apply ice packs * For sore nipples: * Identify correct latch-on * Apply warm moist washcloths before and after nursing * Air dry nipples after nursing * May apply Lansinoh cream to nipples PERINEAL CARE: * Until bleeding stops, use your lauren bottle after urinating * Change your pad frequently throughout the day * You may take sitz baths several times a day (fill your bathtub with warm water and soak for 20 minutes.) Do NOT bathe in the water * No tub baths until seen by your physician - You may shower ACTIVITY: * Rest as much as possible. * Do not exercise or lift anything heavier than your baby (such as laundry or other children.) * Avoid stairs or driving as much as possible. * Do not put anything into the vagina. No douching, tampons, or sexual activity until seen by physician. NOTIFY PHYSICIAN IF YOU HAVE ANY QUESTIONS OR IF ANY OF THE FOLLOWING SYMPTOMS OCCUR: * If your perineum becomes red, swollen, or more painful than what you have experienced in the hospital. * If your vaginal bleeding becomes foul smelling. * If your vaginal bleeding becomes more heavy than a period or if your bleeding changes from pink to bright red. However, you may pass an occasional walnut-sized clot once or twice for the first week . * If you experience a sharp, shooting pain in you calves. * If you discover a hard, reddened area on your breast or if you experience flu-like symptoms. * If you have a fever of 100.4 or greater DIET: * Eat regular, well-balanced meals. * Drink plenty of fluids daily. If , drink to thirst. Patient Instructions: Antibiotic Form Stand Alone Forms: General Discharge Information Follow-up/Referrals: Nigel Roque MD [Physician] - 3 Weeks Discharge Medications: New ibuprofen 600 mg Tablet 600 mg PO Q6H PRN (Reason: Cramping) Qty: 30 RF: 0 Continued 400 mcg Tablet,Chewable 400 mcg PO DAILY RF: 0 Date of admission: 04/11/20 17:53 Primary Care Provider: PHYSICIAN,DIETETICS DIRECTOR Admitting Provider: Nigel Roque Interventions: Discharge Disposition Last Done: 04/13/20 14:57 Discharge Date/Time: 04/13/20 14:57 Attending physician on admission: Nigel Roque Condition: Stable
== END 2020-04-13 14:57 | disposition home or self-care (01) | DRG 807 ==
LOC: ANHLDR 18:06 → ANHOB2 04-12 13:13
PROVIDERS: Admitting Provider Obstetrics & Gynecology; Visit Provider Obstetrics & Gynecology
DX: O34.211 Maternal care for low transverse scar from previous cesarean delivery (principal); Z37.0 Single live birth; Z3A.39 39 weeks gestation of pregnancy; O70.1 Second degree perineal laceration during delivery; O99.214 Obesity complicating childbirth; E66.9 Obesity, unspecified
CPT/HCPCS: 36415; 85014; 85018; 85025; 86592; 86850; 86900; 86901; A9270; J2590; J2795; J3010; J7120

== ENCOUNTER 2025-05-04 11:29 | Outpatient (CLI) | payer OTHER, SELFPAY ==
--- OUTSIDE RECORDS SUMMARY | 2025-05-04 12:10 | XMS_ITS | Clinical Summary ---
Author Organization [facility] Address On license of [facility] [place] [address] Care Team Providers Care Calender Roll Operator Name Role Phone Graciela Rawls PA-C Primary Care Provider [phone] Encounters Date Type Department Care Team Description 04/25/2025 Telephone [facility] [address] [place] [address] America Watson NP Orders (Heart Monitor ) from Last 3 Months Social History Tobacco Use Types Packs/Day Years Used Date Smoking Tobacco: Never Assessed Comments Unknown Sex and Gender Information Value Date Recorded Sex Assigned at Female 10/08/2024 1:27 PM HOSTLER HELPER Legal Sex Female 6:10 PM CDT Gender Identity Not on file Sexual Orientation Not on file Last Filed Vital Signs Vital Sign Reading Time Taken Comments Blood Pressure 120/79 08/03/2007 11:15 AM HOSTLER HELPER Pulse 78 08/03/2007 11:15 AM HOSTLER HELPER Temperature - - Respiratory Rate - - Oxygen Saturation - - Inhaled Oxygen Concentration - - Weight 65.3 kg (144 lb) 08/03/2007 11:15 AM HOSTLER HELPER Height 167.6 cm (5' 6) 08/03/2007 11:15 AM HOSTLER HELPER Body Mass Index 23.24 08/03/2007 11:15 AM HOSTLER HELPER Plan of Treatment Health Maintenance Due Date Last Done Comments Cervical Cancer Screening Pap Smear (Age 30 to 64) Every 3 Years 1987 Annual Physical 1990 Hepatitis C 2005 HPV Vaccines (1 - 3-dose SCDM series) 2014 Cervical Cancer Screening Pap with HPV Testing (Age 30 to 64) Every 5 Years 2017 Cervical Cancer Screening with HPV 2017 COVID-19 Vaccine ( season) 2025 05/14/2022, 07/05/2021, 11/27/2020, Additional history exists DTaP, Tdap and Td Vaccines (7 - Td or Tdap) 01/12/2030 01/13/2020, 03/04/2002, 03/22/1993, Additional history exists Hepatitis B Vaccines Completed 12/08/1997, 07/25/1997, 06/24/1997 Meningococcal B Vaccine Aged Out No l onger eligible based on patient's age to complete this topic Meningococcal Vaccine Aged Out No luis felipe marbin eligible based on patient's age to complete this topic Pneumococcal Vaccine: Pediatrics (0 to 5 Years) and At-Risk Patients (6 to 49 Years) Aged Out No longer eligible based on patient's age to complete this topic RSV Immunizations Under 20 Months Aged Out No longer eligible based on patient's age to complete this topic Insurance [employer] Care Teams Calender Roll Operator Relationship Specialty Start Date End Date Graciela Rawls PA-C [address] [place] [address] PCP - General PHYSICIAN CIRCULATION SALES REPRESENTATIVE 07/25/22
--- OUTSIDE RECORDS SUMMARY | 2025-05-04 12:10 | XMS_ITS | Clinical Summary ---
Author Organization [facility] Care Team Providers Care Wheel Blocker Name Role Phone Unavailable Primary Care Provider Unavailabl e Social History Tobacco Use Types Packs/Day Years Used Date Smoking Tobacco: Never Assessed Comments Unknown Sex and Gender Information Value Date Recorded Sex Assigned at Not on file Legal Sex Female 8:56 AM CORPORATE SAFETY COORDINATOR Gender Identity Not on file Sexual Orientation Not on file Plan of Treatment Health Maintenance Due Date Last Done Comments Hepatitis C Virus (HCV) Screening 1987 Hepatitis B Immunization (1 of 3 - 19+ 3-dose series) 2006 Pap Smear 2008 Human Papillomavirus (HPV) Immunization (1 - 3-dose SCDM series) 2014 Cervical Cancer Screening (CCS) 2017 HPV/Cotest 2017 Influenza Immunization (#1) 04/04/202505/05, 05/21/2018 SARS-COV-2 Immunization ( season) 2025 Respiratory Syncytial Virus (RSV) Immunization (Adult) (1 - 1-dose 75+ series) 2062 DTaP/Tdap/Td Immunization Discontinued 01/13/2020 TdaP Immunization Completed 01/13/2020 Meningococcal Immunization (ACWY) Aged Out No longer eligible based on patient's age to complete this topic Pneumococcal Immunization Combined Aged Out No longer eligible based on patient's age to complete this topic Rotavirus Immunization Aged Out No lo nger eligible based on patient's age to complete this topic
--- NOTE | 2025-05-13 12:18 | WPDHOLTEREM ---
Holter/Event Monitor Holter/Event Monitor Date of procedure: 05/04/25 Holter/Event Procedure: 3-7 Day Holter Monitor Indications: Palpitations Conclusion: 1. 6 days holter monitor on 05/04/25. 2. Predominant rhythm is sinus rhythm. HR range 50-191 bpm; average HR 84 bpm. HR at 191 bpm was on 05/07/25 at 7:33 am. 3. There are rare premature supraventricular complexes. There is 1 episode of supraventricular tachycardia at 141 bpm lasting 9 beats. 4. There are rare premature ventricular complexes and rare ventricular couplets. No ventricular tachycardia. 5. No significant pauses greater than 3 seconds. 6. No symptoms available for correlation.
== END 2025-05-04 11:30 | disposition home or self-care (01) ==
PROVIDERS: PCP Nurse Practitioner Adult Health; Visit Provider Nurse Practitioner Adult Health
DX: R00.2 Palpitations (principal)
CPT/HCPCS: 93242